=== PATIENT | male | born 1960 | race Caucasian/White ===

== ENCOUNTER 2020-05-07 13:12 | Emergency (ER) | payer OTHER, SELFPAY ==
--- NOTE | ~2020-05-07 | CT_ITS ---
EXAMINATION: CT brain wo con EXAM DATE: 05/07/2020 14:40 INDICATION: Fall Trauma LOC today, posterior head lac. TECHNIQUE: Spiral CT of the head was performed without contrast. Axial, coronal and sagittal images were reviewed. The dose-length product (DLP) for this examination was 605.33 mGy-cm. The exposure w as tailored according to patient size, and iterative reconstruction (ASIR) was used as additional dos e reduction technique. There is no prior study for comparison. 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 There is no acute intrap arenchymal hemorrhage. No evidence of intraparenchymal brain mass lesion. No evidence of acute infa rction. Please note that initial head CT has limited sensitivity for small or acute infarctions. The re is moderate periventricular and subcortical hypodensity, nonspecific but probably related to small vessel ischemic disease. There is mild prominence of the sulci and ventricles related to cerebral atrophy. There is intracranial carotid arteriosclerosis. There are no extra-axial collections. Th ere is no mass effect or midline shift. The orbits are unremarkable. Posterior scalp contusion/lace ration. The visualized sinuses and mastoid air cells are well aerated. IMPRESSION: 1. No acute intracranial findings. 2. Chronic age related findings. 3. Posterior scalp contusion/laceration. Reviewed, dictated and finalized at location [facility]
[2020-05-07 13:12] VITALS: BP 104/73; PULSE 102; PULSE 91; RESP 16; TEMP 36.5; O2SAT 97
--- NOTE | 2020-05-07 13:18 | ED.SYNCOPE ---
HPI - Syncope General Chief Complaint: Syncope Stated Complaint: ambulance Time Seen by Provider: 05/07/20 13:19 Source: patient, EMS and RN notes reviewed Mode of arrival: EMS Limitations: no limitations History of Present Illness HPI narrative: Patient was loading some heavy carpet in and out of his car. Says he passed out twice today. Second time he passed out in the street and and EMS was called he is brought in for further evaluation. He says he used to have high blood pressure that he was told he had low blood pressure. He is not taking his medication for the last 8 months. He has no injuries. His sugar was normal. He remembers the event there is no confusion following the event. MD complaint: loss of consciousness and collapsed Onset (ago): minute(s) (30) Prodromal symptoms: none Witnessed: No Context: during exertion Injuries sustained associated with event: none Current symptoms: back to baseline Treatments prior to arrival: none Related Data Home Medications Medication Instructions Recorded Confirmed amitriptyline 25 mg PO HS 05/07/20 05/07/20 Allergies Allergy/AdvReac Type Severity Reaction Status Date / Time No Known Allergies Allergy Verified 05/07/20 13:31 Review of Systems Constitutional: Constitutional: Denies chills, Denies fever(s) and Denies weakness Eyes: Eyes: Reports no additional eye complaints ENT: Reports system reviewed and no additional complaints, except as documented Cardiovascular: Cardiovascular: Denies chest pain and Denies rapid heart rate Respiratory: Respiratory: Reports no additional respiratory complaints Gastrointestinal: Gastrointestinal: Reports constipation, Denies diarrhea, Denies nausea and Denies vomiting Genitourinary: Genitourinary: Reports no additional male genitourinary complaints, Denies hematuria and Denies dysuria Musculoskeletal: Musculoskeletal: Reports no additional musculoskeletal complaints Integumentary/Breasts: Skin/Breast: Reports system reviewed and no additional complaints, except as docu Neurologic: Denies confusion, Denies vertigo, Denies dizziness, Denies headache(s) and Denies focal weakness Psychiatric: Psychiatric: Reports no additional psychiatric complaints Endocrine: Endocrine: Reports no additional endocrine complaints [facility] Past Medical History Medical History (Updated 05/07/20 @ 16:17 by Angel Robert MD) Hypertension Surgical History Surgical History (Updated 05/07/20 @ 15:42 by Angel Robert MD) H/O knee surgery left H/O shoulder surgery left Social History Social History (Updated 05/07/20 @ 15:42 by Angel Robert MD) Smoking packs per day: 3 Smoking cigarettes per day: 60.0 Smoking status: Current every day smoker Tobacco type: cigarettes Alcohol intake: current Alcohol use details: occasional Substance use: current Substance use type: marijuana Exam Const: General: healthy appearing, no acute distress and alert; No confusion Nutritional Appearance: well nourished and thin Orientation/consciousness: patient oriented x3 HENMT: Head: normal to inspection and laceration right occipital linear, actively bleeding and with sensation intact; not contaminated 1.5 cm Ears: external ears normal General nose exam: Normal external nose present Face and sinus: normal facial exam Mouth: Yes Normal oral and palatal mucosa present, Yes lip normal and Yes dry mucous membranes Eyes: Conjunctivae: conjunctivae normal Pupils: Equal, round and reactive pupils present EOM: EOMs intact bilaterally Neck: Neck: normal visual inspection Resp: Effort & Inspection: normal respiratory effort Auscultation: clear to auscultation bilaterally Cardio: Rate: regular rate Rhythm: regular rhythm GI: GI Palp: Yes Soft to palpation and No Tenderness to palpation present (GI) Auscultation: normal bowel sounds Back/Spine/Pelvis: Cervical Spine: cervical ROM normal Thoracic/Lumbar Spine: thoraco-
--- NOTE | 2020-05-07 13:24 | ECG_ITS ---
Measurements Intervals Loiza Rate: 87 P: 32 ND: 152 QRS: 11 QRSD: 101 T: 24 QT: 399 QTc: 483 Interpretive Statements SINUS RHYTHM ATRIAL PREMATURE COMPLEX VOLTAGE CRITERIA FOR LVH MINIMAL Q WAVES- DIFFUSE LEADS BORDERLINE ECG Electronically Signed On 05-07-2020 14:45:36 DIE MACHINE OPERATOR by Didier Overton D.O.
[2020-05-07] MEDS: SODIUM CHLORIDE 0.9% IV 1,000 ML 999 ML IV CONT ×2 (13:40→15:54)
[2020-05-07 13:46] LABS: Basophils Absolute Auto 0.04 K/mm3 (0.00-0.10); Basophils Percent Auto 0.2 % (0.0-1.0); Eosinophils Absolute Auto 0.08 K/mm3 (0.02-0.50); Eosinophils Percent Auto 0.5 % (1.0-6.0); Hematocrit 43.1 % (40.0-54.0); Hemoglobin 14.7 g/dL (14.0-18.0); Immature Granulocyte Absolute 0.11 K/mm3 (0.00-0.00); Immature Granulocyte Percent A 0.7 % (0.0-0.0); Lymphocytes Absolute Auto 2.35 K/mm3 (1.10-4.50); Lymphocytes Percent Auto 14.5 % (18.0-42.0); Mean Corpuscular HGB Conc 34.1 g/dL (32.0-36.0); Mean Corpuscular Hemoglobin 34.6 pg (27.0-31.0); Mean Corpuscular Volume 101.4 fL (78.0-102.0); Mean Platelet Volume 10.1 fl (8.7-11.0); Monocytes Absolute Auto 1.36 K/mm3 (0.10-0.90); Monocytes Percent Auto 8.4 % (2.0-11.0); Neutrophils Absolute Auto 12.3 K/mm3 (1.7-7.2); Neutrophils Percent Auto 75.7 % (50.0-70.0); Platelet Count Result 369 K/mm3 (150-420); Red Blood Count 4.25 M/mm3 (4.70-6.10); Red Cell Distribution Width 11.7 % (11.6-14.4); White Blood Count 16.3 K/mm3 (4.8-10.8)
[2020-05-07 14:02] LABS: Alanine Aminotransferase 21 U/L (16-63); Albumin Level 4.2 g/dL (3.4-5.0); Alkaline Phosphatase 113 U/L (46-116); Anion Gap 12 mmol/L (8-16); Aspartate Amino Transferase 14 U/L (15-37); Bilirubin,Total 0.6 mg/dL (0.00-1.00); Blood Urea Nitrogen 21 mg/dL (7-18); Calcium 9.8 mg/dL (8.5-10.1); Carbon Dioxide 26 mmol/L (21-32); Chloride 94 mmol/L (98-108); Estimated Glomerular Filt Rate 40; Glucose 201 mg/dL (70-99); Magnesium 2.2 mg/dL (1.8-2.4); Osmolality Calculated 283 mOsm/kg (285-295); Potassium 3.4 mmol/L (3.5-5.1); Sodium 132 mmol/L (136-145); Total Protein 8.2 g/dL (6.4-8.2)
[2020-05-07 14:15] LABS: Ethanol < 3 mg/dL (0-6)
[2020-05-07 14:33] VITALS: PULSE 82; RESP 14; O2SAT 99
[2020-05-07 14:45] VITALS: PULSE 86; RESP 16; O2SAT 97
[2020-05-07 15:00] VITALS: PULSE 86; RESP 18; O2SAT 96
[2020-05-07] MEDS: LIDO 1%/EPINEPHRINE 1:100,000 20 ML VIAL INFILTRATE (15:05)
[2020-05-07 15:15] VITALS: PULSE 81; RESP 19; O2SAT 96
[2020-05-07] MEDS: TETANUS,DIPHTHERIA,AC PERTUSSIS ADULT 0.5 ML (ADACEL) IM (15:18)
--- NOTE | 2020-05-07 15:34 | PC.NURSE ---
1452 3 jorge placed in laceration by michael fernández
[2020-05-07 15:37] LABS: Add Urine Microscopic? YES; Appearance Urine Sl Cloudy (Clear); Bilirubin Urine 1+ (Negative); Blood Urine Negative (Negative); Color Urine Amber (Yellow); Glucose Urine UA Negative (Negative); Ketones Urine 2+ (Negative); Leukocyte Esterase Ur Negative LEU/UL (Negative); Nitrate Urine Negative (Negative); Protein Urine 1+ (Negative); Specific Grav Ur 1.025 (1.010-1.020); Urobilinogen Urine 0.2 mg/dL (0.2-1.0)
[2020-05-07 15:40] LABS: Bacteria Urine Trace /hpf; RBC Urine None seen /hpf (0-2); Squamous Epithelial Cell Urine Rare /hpf (Few); WBC Urine None seen /hpf (0-3)
[2020-05-07 15:41] LABS: Mucus Urine Few /lpf
[2020-05-07] MEDS: POTASSIUM BICARBONATE 25 MEQ TABEF PO (16:30)
[2020-05-07 16:50] VITALS: BP 140/90; RESP 20; O2SAT 94
== END 2020-05-07 16:57 | disposition home or self-care (01) ==
PROVIDERS: Emergency Provider Emergency Medicine; PCP Family Medicine
DX: R55 Syncope and collapse (principal); E86.0 Dehydration; E87.6 Hypokalemia; S01.01XA Laceration without foreign body of scalp, initial encounter
CPT/HCPCS: 12001; 36415; 70450; 80053; 80307; 81001; 83735; 85025; 90471; 90715; 93005; 96360; 96361; 99283; 99284; A9270; J7030

== ENCOUNTER 2022-07-24 10:24 | Outpatient (CLI) | payer MEDICAID, SELFPAY ==
--- NOTE | ~2022-07-24 | XR_ITS ---
Lumbosacral Spine: AP and lateral views Clinical History: Pain Findings: The normal lordotic curve is maintained. There is mild to moderate compression deformity at the superior endplate of L3. Probable mild anterior wedging deformities of T11, T12, and L1. There i s mild degenerative disc narrowing at L5-S1. The sacroiliac joints are normally outlined. Impression: Compression deformities of T11, T12, L1, and L3, as noted above. Consider MR to better evaluate for a cute marrow edema, as indicated. Reviewed, dictated and finalized at [facility]. 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 Consider MR to better evaluate for acute marrow edema, as indicated.
--- NOTE | ~2022-07-24 | CT_ITS ---
CT Scan of the Chest without Contrast: Clinical Indication: Lung cancer screening, nicotine dependence Technique: Contiguous sections were acquired throughout the chest without intravenous contrast. Dose reduction technique was used on this scan by utilizing automated exposure control and iterative recon struction technique. The dose-length product (DLP) was 71.52 mGy-cm. COMPARISON: 05/31/2019 Findings: There is no evidence of any significant mediastinal, hilar or axillary lymphadenopathy. There are ath erosclerotic calcifications of the aorta. There is no evidence of pleural or pericardial effusion. The lungs are clear. No pulmonary nodules or infiltrates are noted. Images through the upper abdomen reveal no abnormalities. Impression: Lung-RADS 1: Negative. 12 month follow-up screening CT advised. Reviewed, dictated and finalized at location . 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 12 month follow-up screening CT advised.
[2022-07-24 11:17] LABS: Cholesterol 190 mg/dL (0-200); HDL Direct 35 mg/dL (40-60); LDL Cholesterol Calculated 133 mg/dL (<130); Triglycerides 110 mg/dL (0-150)
== END 2022-07-24 10:25 | disposition home or self-care (01) ==
LOC: CHSIMG 10:28
PROVIDERS: PCP Family Medicine; Visit Provider Family Medicine
DX: Z12.2 Encounter for screening for malignant neoplasm of respiratory organs (principal); Z87.891 Personal history of nicotine dependence; M51.04 Intervertebral disc disorders with myelopathy, thoracic region
CPT/HCPCS: 36415; 71271; 72100; 80061

== ENCOUNTER 2022-08-08 10:32 | Outpatient (CLI) | payer MEDICAID, SELFPAY ==
--- NOTE | ~2022-08-08 | MR_ITS ---
MRI of the lumbar spine Clinical History: Back pain Technique: Axial T2-weighted images, and sagittal T1-weighted, T2-weighted, and T2 fat-sat images wer e acquired. Findings: Moderate chronic compression fracture deformity of L3 present, with loss of height but no m arrow edema. No other fracture evident in the lumbar spine. Grade 1 retrolisthesis of L5 over S1 juan pablo ures 3 mm. No focal bone marrow signal abnormality seen in the lumbar spine. At L1-L2, there is mild disc bulge. No spinal canal stenosis. There is minimal bilateral neural fabiano inal narrowing. At L2-L3, there is minimal disc bulge. No spinal canal stenosis. No definite neural foraminal narrowi ng. At L3-L4, there is minimal disc bulge. No spinal canal stenosis. There is mild bilateral neural fabiano inal narrowing. At L4-L5, there is disc bulge and facet arthropathy. No spinal canal stenosis. There is moderate righ t neural foraminal narrowing and minimal left neural foraminal narrowing. At L5-S1, there is minimal disc bulge with facet arthropathy. No spinal canal stenosis. There is gloria re bilateral neural foraminal narrowing. Paravertebral soft tissues are unremarkable. Impression: Severe bilateral neural foraminal narrowing at L5-S1, related to disc bulge and facet arthropathy. Additional bilateral neural foraminal narrowing at L1-L2, L3-L4, L4-L5, as detailed above. Chronic moderate compression fracture of L3. No marrow edema evident. Reviewed, dictated and finalized at [facility]. Impression: Severe bilateral neural foraminal narrowing at L5-S1, related to disc bulge and facet arthropathy. Additional bilateral neural foraminal narrowing at L1-L2, L3-L4, L4-L5, as deta iled above. Chronic moderate compression fracture of L3. No marrow edema evident.
== END 2022-08-08 10:33 | disposition home or self-care (01) ==
LOC: CHSIMG 10:33
PROVIDERS: PCP Family Medicine; Visit Provider Family Medicine
DX: M54.50 Low back pain, unspecified (principal); R60.9 Edema, unspecified; M51.17 Intervertebral disc disorders with radiculopathy, lumbosacral region; M48.07 Spinal stenosis, lumbosacral region; M48.56XA Collapsed vertebra, not elsewhere classified, lumbar region, initial encounter for fracture
CPT/HCPCS: 72148

== ENCOUNTER 2022-09-16 10:34 | Outpatient (CLI) | payer OTHER, SELFPAY ==
--- NOTE | ~2022-09-16 | XR_ITS ---
AP and lateral views view of the bilateral hips Clinical history: Pain Findings: No acute fracture or dislocation is seen. Osseous alignment is anatomic. There is mild dege nerative change of both hip joints, right worse than left. Soft tissues are unremarkable. Impression: Mild degenerative change of both hip joints, right worse than left. Reviewed, dictated and finalized at location . Impression: Mild degenerative change of both hip joints, right worse than left.
== END 2022-09-16 10:35 | disposition home or self-care (01) ==
LOC: CHSIMG 10:38
PROVIDERS: PCP Family Medicine
DX: M25.551 Pain in right hip (principal); M25.552 Pain in left hip
CPT/HCPCS: 73521